=== PATIENT | female | born 1975 | race Caucasian/White ===

== ENCOUNTER 2016-05-31 17:41 | Emergency (ER) | payer MEDICARE ==
[~2016-05-31] VITALS: Ht 165.1 cm; Wt 111.1 kg
[2016-05-31 18:00] VITALS: BP 144/98; PULSE 90; RESP 16; TEMP 97.4; O2SAT 99
--- NOTE | 2016-05-31 18:15 | NUR ---
Pt to bed 8
--- NOTE | 2016-05-31 18:33 | NUR ---
PT c/o pain inner right nare from a cut a few days ago. No redness noted. No drainage noted.
--- NOTE | 2016-05-31 18:51 | NUR ---
Dr. Sousa at bedside for evaluation
--- NOTE | 2016-05-31 18:56 | NUR ---
Bacitracin applied to right inner nare
[2016-05-31 19:00] VITALS: BP 144/98; PULSE 90; RESP 16; TEMP 97.4; O2SAT 99
[2016-05-31] MEDS ORDERED: BACITRACIN 1 GM OINT TP ONE (19:00)
--- NOTE | 2016-05-31 19:00 | NUR ---
Patient given written and verbal discharge instructions and verbalizes understanding. ER MD discussed with patient the results and treatment provided. Patient in stable condition. ID arm band removed. Rx given. Patient educated on pain management and to follow up with PMD. Pain Scale 0/10. Opportunity for questions provided and answered.
== END 2016-05-31 19:00 | disposition home or self-care (01) ==
LOC: SED 17:41
DX: S00.31XD Abrasion of nose, subsequent encounter (principal); W45.8XXD Other foreign body or object entering through skin, subsequent encounter
CPT/HCPCS: 99281; 99283

== ENCOUNTER 2019-10-11 15:35 | Emergency (ER) | payer BC, MEDICARE ==
[~2019-10-11] VITALS: Ht 167.6 cm; Wt 66.7 kg
[2019-10-11 15:40] VITALS: BP_SYST 146
[2019-10-12] MEDS ORDERED: NACL 0.9% 1,000 ML IV ONE (02:00)
[2019-10-12 02:34] LABS: BILIRUBIN,URINE NEGATIVE (NEGATIVE); BLOOD, URINE 2+ (NEGATIVE); CLARITY/URINE SL CLOUDY (CLEAR); COLOR,URINE YELLOW (YELLOW); GLUCOSE,URINE NEGATIVE (NEGATIVE); KETONES,URINE 1+ (NEGATIVE); LEUKOCYTE ESTERASE ,URINE TRACE (NEGATIVE); NITRITE, URINE NEGATIVE (NEGATIVE); PH,URINE 5.5 (5.0-8.0); PROTEIN URINE NEGATIVE (NEGATIVE); UROBILINOGEN,URINE 0.2 (0.2-1.0)
[2019-10-12 02:35] LABS: BASOPHILS % (AUTO) 0.5 % (0.0-2.0); EOSINOPHILS # (AUTO) 0.1 K/uL (0.0-0.4); EOSINOPHILS % (AUTO) 1.5 % (0.0-4.0); HEMATOCRIT 41.5 % (36-48); LYMPHOCYTES # (AUTO) 2.3 K/uL (1.0-5.5); LYMPHOCYTES % (AUTO) 27.3 % (20.5-51.5); MEAN CORPUSCULAR HEMOGLOBIN 31 pg (27-31); MEAN CORPUSCULAR HGB CONC 34 % (32-36); MEAN CORPUSCULAR VOLUME 92 fL (79.0-98.0); MONOCYTES # (AUTO) 0.5 K/uL (0.0-1.0); MONOCYTES % (AUTO) 5.6 % (1.7-9.3); NEUTROPHILS # (AUTO) 5.5 K/uL (1.8-7.7); NEUTROPHILS % (AUTO) 65.1 % (40.0-70.0); PLATELET COUNT (AUTO) 189 K/uL (130-430); RED CELL DISTRIBUTION WIDTH 12.5 % (9.0-15.0); WHITE BLOOD COUNT (AUTO) 8.5 K/uL (4.8-10.8)
[2019-10-12] MEDS ORDERED: cefTRIAXone 1 GM in D5W 50 ML IV ONE (02:45)
[2019-10-12 02:48] LABS: BARBITURATE, URINE NEGATIVE (NEG <=200); CALCIUM 8.9 mg/dL (8.4-11.0); CREATININE 0.67 mg/dL (0.55-1.30); METHAMPHETAMINES SCREEN,URINE NEGATIVE (NEG <=500); POTASSIUM 3.2 mmol/L (3.5-5.1); URINE AMPHETAMINE NEGATIVE (NEG <=500)
[2019-10-12 02:49] LABS: BENZODIAZEPINE, URINE NEGATIVE (NEG <=150); CANNABINOID, URINE NEGATIVE (NEG <=50); COCAINE, URINE NEGATIVE (NEG <=150); OPIATE, URINE NEGATIVE (NEG <=100); PHENCYCLIDINE SCREEN,URINE NEGATIVE (NEG <=25); UR TRICYCLIC ANTIDEPRESSANTS NEGATIVE (NEG <=300); URINE METHADONE NEGATIVE (NEG <=200); URINE OXYCODONE SCREEN NEGATIVE (NEG <=100); URINE PROPOXYPHENE SCREEN NEGATIVE (NEG <=300)
[2019-10-12 02:55] LABS: BACTERIA,URINE FEW /HPF (None Seen)
[2019-10-12 02:56] LABS: HYALINE CASTS, URINE 0-10 /LPF (None Seen)
[2019-10-12 03:09] LABS: TOTAL BILIRUBIN 0.6 mg/dL (0.0-1.0)
[2019-10-12] MEDS ORDERED: cefTRIAXone 1 GM VIAL ONE (03:15)
[2019-10-12 04:29] VITALS: BP_SYST 135
[2019-10-12] MEDS ORDERED: POTASSIUM CHLORIDE 20 MEQ TAB.PRT.SR PO ONE (04:30)
== END 2019-10-12 04:29 | disposition home or self-care (01) ==
LOC: SED 15:35
DX: E86.0 Dehydration (principal); E87.6 Hypokalemia; N39.0 Urinary tract infection, site not specified
CPT/HCPCS: 36415; 70450; 71045; 80053; 80307; 81000; 81025; 85025; 87086; 96361; 96365; 99285; J0696

== ENCOUNTER 2020-11-03 21:31 | Emergency (ER) | payer BC ==
[~2020-11-03] VITALS: Ht 165.1 cm; Wt 86.2 kg
[2020-11-03 21:45] VITALS: BP_SYST 143
--- NOTE | 2020-11-03 21:45 | NUR ---
PT TO REMAIN IN ER UNTIL ER BED BECOMES AVAILABLE.
--- NOTE | 2020-11-03 23:55 | NUR ---
Patient to ER bed 05 to gown for evaluation. Side rails up. Report given to ELIJAH Nagy
--- NOTE | 2020-11-04 00:22 | NUR ---
Patient AAox4 and ambulatory from home c/o right ear discomfort. per patient stated hears movement and possible scratching or possible bug in ear. denies any hearing loss. currently rating discomfort of 4/10 on the pain scale. no discharge from ear noted. vss
--- NOTE | 2020-11-04 00:36 | NUR ---
DR. SWIFT AT BEDSIDE FOR EVALUATION.
--- NOTE | 2020-11-04 01:06 | NUR ---
Right Ear Lavaged with 160 cc of normal saline and hydrogen peroxide. Patient tolerated well.
[2020-11-04] MEDS ORDERED: CORTEARS RIGHT EAR (01:14)
[2020-11-04 01:20] VITALS: BP_SYST 143
--- NOTE | 2020-11-04 01:23 | NUR ---
Patient given written and verbal discharge instructions and verbalizes understanding. DR. JENIFFER BRINK MD discussed with patient the results and treatment provided. Patient in stable condition. ID arm band removed. Rx of CORTISPORIN EAR DROPS given. Patient educated on pain management and to follow up with PMD. Pain Scale 0/10. Opportunity for questions provided and answered. Medication side effect fact sheet provided.
== END 2020-11-04 01:23 | disposition home or self-care (01) ==
LOC: SED 21:31
DX: T16.1XXA Foreign body in right ear, initial encounter (principal); X58.XXXA Exposure to other specified factors, initial encounter; Y93.89 Activity, other specified; Y92.89 Other specified places as the place of occurrence of the external cause; Y99.8 Other external cause status
CPT/HCPCS: 99284

== ENCOUNTER 2020-11-10 18:49 | Emergency (ER) | payer BC ==
[~2020-11-10] VITALS: Ht 165.1 cm; Wt 86.2 kg
[~2020-11-10 18:49] MED LIST: CORTEARS RIGHT EAR
[2020-11-10 19:06] VITALS: BP_SYST 136
[2020-11-10] MEDS ORDERED: AMOX500C2 PO (23:18)
[2020-11-10 23:28] VITALS: BP_SYST 125
== END 2020-11-10 23:28 | disposition home or self-care (01) ==
LOC: SED 18:49
DX: H66.91 Otitis media, unspecified, right ear (principal); Z79.899 Other long term (current) drug therapy
CPT/HCPCS: 99283

== ENCOUNTER 2021-07-10 21:48 | Emergency (ER) | payer BC ==
[~2021-07-10] VITALS: Ht 165.1 cm; Wt 98.9 kg
[~2021-07-10 21:48] MED LIST changes: +AMOX500C2 PO
[2021-07-10 22:13] VITALS: BP_SYST 134
[2021-07-10 22:35] VITALS: BP_SYST 134
== END 2021-07-10 22:35 | disposition home or self-care (01) ==
LOC: SED 21:48
DX: T16.1XXA Foreign body in right ear, initial encounter (principal); X58.XXXA Exposure to other specified factors, initial encounter; Y93.89 Activity, other specified; Y92.098 Other place in other non-institutional residence as the place of occurrence of the external cause; Y99.8 Other external cause status
CPT/HCPCS: 99282

== ENCOUNTER 2021-07-24 11:16 | Emergency (ER) | payer BC ==
[~2021-07-24] VITALS: Ht 165.1 cm; Wt 97.5 kg
[2021-07-24 11:25] VITALS: BP_SYST 132
--- NOTE | 2021-07-24 11:25 | NUR ---
Pt is to remain in the ER lobby until an ER bed becomes available.
--- NOTE | 2021-07-24 12:20 | NUR ---
ER Dr Salazar to bedside to examine patient
--- NOTE | 2021-07-24 12:26 | NUR ---
Pt came in from home reporting L ear discomfort x 3 days after leaving shampoo in ear then rinsing it several times. Alert and oriented. Non diabetic. Awaiting further dispo.
[2021-07-24] MEDS ORDERED: AMOX500C2 PO (12:33)
[2021-07-24] MEDS ORDERED: IBUP-1969 PO (12:33)
[2021-07-24] MEDS ORDERED: CORTEARS RIGHT EAR (12:33)
--- NOTE | 2021-07-24 13:02 | NUR ---
Patient given written and verbal discharge instructions and verbalizes understanding. ER Dr Salazar discussed with patient the results and treatment provided. Patient in stable condition. ID arm band removed. Rx of Amoxicillin, Cortisporin and Ibuprofen given. Patient educated on pain management and to follow up with PMD. Pain scale 2/10. Opportunity for questions provided and answered. Medication side effect fact sheet provided.
[2021-07-24 13:03] VITALS: BP_SYST 132
== END 2021-07-24 13:03 | disposition home or self-care (01) ==
LOC: SED 11:16
DX: H60.92 Unspecified otitis externa, left ear (principal)
CPT/HCPCS: 99283

== ENCOUNTER 2021-07-29 22:55 | Emergency (ER) | payer BC ==
[~2021-07-29] VITALS: Ht 165.1 cm; Wt 98.9 kg
[~2021-07-29 22:55] MED LIST changes: +IBUP-1969 PO
[2021-07-29 23:12] VITALS: BP_SYST 141
--- NOTE | 2021-07-29 23:16 | NUR ---
Patient triaged and placed in waiting room. VSS and patient appears in no acute distress at this time. Accompanied by self, awaiting available bed, and MD notified of need for MSE.
[2021-07-29] MEDS ORDERED: DIPH-TET-PERTUS Vaccine 0.5 ML VIAL (ADACEL) I.M. ONE (23:30)
--- NOTE | 2021-07-30 00:01 | NUR ---
PATIENT COMPLAINING OF SCRATCH TO RIGHT UPPER ARM. PATIENT REPORTS THAT SHE SCRATCHED IT WITH A GREG SCREW. PATIENT WOULD LIKE TO BE UPDATED ON TDAP. DENIES ANY PAIN AT THIS TIME.
--- NOTE | 2021-07-30 00:05 | NUR ---
ER in triage examining patient.
[2021-07-30 00:23] VITALS: BP_SYST 132
--- NOTE | 2021-07-30 00:23 | NUR ---
Patient given written and verbal discharge instructions and verbalizes understanding. ER MD discussed with patient the results and treatment provided. Patient in stable condition. ID arm band removed. NO RX Patient educated on pain management and to follow up with PMD. Pain Scale 0/10 Opportunity for questions provided and answered.
== END 2021-07-30 00:23 | disposition home or self-care (01) ==
LOC: SED 22:55
DX: S40.211A Abrasion of right shoulder, initial encounter (principal); Z79.899 Other long term (current) drug therapy; W22.8XXA Striking against or struck by other objects, initial encounter; Y93.89 Activity, other specified; Y92.89 Other specified places as the place of occurrence of the external cause; Y99.8 Other external cause status
CPT/HCPCS: 90715; 99283

== ENCOUNTER 2021-08-07 14:33 | Emergency (ER) | payer BC ==
[~2021-08-07] VITALS: Ht 165.1 cm; Wt 95.3 kg
--- NOTE | 2021-08-07 14:33 | NUR ---
Pt triaged and placed in ER lobby awaiting bed availability.
[2021-08-07 14:37] VITALS: BP_SYST 124
[2021-08-07 17:09] VITALS: BP_SYST 124
--- NOTE | 2021-08-07 17:10 | NUR ---
Patient given written and verbal discharge instructions and verbalizes understanding. ER MD discussed with patient the results and treatment provided. Patient in stable condition. ID arm band removed. . Rx of Chothrimazole eardrops given. Patient educated on pain management and to follow up with PMD. Pain Scale 2/10. Opportunity for questions provided and answered. Medication side effect fact sheet provided.
== END 2021-08-07 17:09 | disposition home or self-care (01) ==
LOC: SED 14:33
DX: H60.592 Other noninfective acute otitis externa, left ear (principal)
CPT/HCPCS: 82962; 99282

== ENCOUNTER 2021-08-11 10:09 | Emergency (ER) | payer BC ==
[~2021-08-11] VITALS: Ht 165.1 cm; Wt 95.3 kg
[2021-08-11 10:15] VITALS: BP_SYST 138
--- NOTE | 2021-08-11 10:15 | NUR ---
Patient to ER bed 3 to gown for evaluation. Side rails up. Report given to Иван NAVA.
--- NOTE | 2021-08-11 10:20 | NUR ---
RECEIVE PATIENT IN BED #3 FOR CC OF BILATERAL EAR PAIN AND NEEDING FURTHER TREATMENT. PT IS STABLE, NAD, VSS, AAOx3, AWAITING TO BE SEEN BY ED MD FOR PLAN OF CARE WITH DISPOSITION.
--- NOTE | 2021-08-11 10:21 | NUR ---
ER at bedside examining patient.
[2021-08-11] MEDS ORDERED: CIPR7.5D OT (10:24)
[2021-08-11] MEDS ORDERED: NAPR-688 PO (10:24)
[2021-08-11 10:30] VITALS: BP_SYST 138
--- NOTE | 2021-08-11 10:35 | NUR ---
Patient given written and verbal discharge instructions and verbalizes understanding. ER MD discussed with patient the results and treatment provided. Patient in stable condition. Rx of given. Patient educated on pain management and to follow up with PMD. Opportunity for questions provided and answered. Medication side effect fact sheet provided.
== END 2021-08-11 10:35 | disposition home or self-care (01) ==
LOC: SED 10:09
DX: H60.92 Unspecified otitis externa, left ear (principal)
CPT/HCPCS: 99283

== ENCOUNTER 2021-10-29 20:17 | Emergency (ER) | payer BC ==
[~2021-10-29] VITALS: Ht 165.1 cm; Wt 95.3 kg
[~2021-10-29 20:17] MED LIST changes: +CIPR7.5D OT; +NAPR-688 PO
--- NOTE | 2021-10-29 22:46 | NUR ---
Pt called to be seen by MD. No answer and pt not seen in WR. Dr Verduzco aware.
[2021-10-30] MEDS ORDERED: CORTEARS EACH EAR (14:47)
[2021-10-30] MEDS ORDERED: TRAM50TA2 PO (14:47)
[2021-10-30] MEDS ORDERED: IBUP-1969 PO (14:47)
== END 2021-10-29 22:46 | disposition left against medical advice (07) ==
LOC: SED 20:17
DX: H92.02 Otalgia, left ear (principal); Z53.21 Procedure and treatment not carried out due to patient leaving prior to being seen by health care provider

== ENCOUNTER 2021-10-31 09:55 | Emergency (ER) | payer BC ==
[~2021-10-31] VITALS: Ht 165.1 cm; Wt 90.7 kg
[~2021-10-31 09:55] MED LIST changes: +CORTEARS EACH EAR; +TRAM50TA2 PO
[2021-10-31] MEDS ORDERED: TRAM50TA PO (11:08)
[2021-10-31 11:43] VITALS: BP_SYST 135
== END 2021-10-31 11:43 | disposition home or self-care (01) ==
LOC: SED 09:55
DX: H72.92 Unspecified perforation of tympanic membrane, left ear (principal); Z79.899 Other long term (current) drug therapy
CPT/HCPCS: 99283

== ENCOUNTER 2021-11-01 08:02 | Emergency (ER) | payer BC ==
[~2021-11-01] VITALS: Ht 165.1 cm; Wt 95.3 kg
[2021-11-01 08:02] VITALS: BP_SYST 152
[~2021-11-01 08:02] MED LIST changes: +TRAM50TA PO
[2021-11-01 08:42] VITALS: BP_SYST 152
== END 2021-11-01 08:46 | disposition home or self-care (01) ==
LOC: SED 08:02
DX: H92.01 Otalgia, right ear (principal); R03.0 Elevated blood-pressure reading, without diagnosis of hypertension; Z79.899 Other long term (current) drug therapy
CPT/HCPCS: 99281

== ENCOUNTER 2021-11-11 14:14 | Emergency (ER) | payer BC ==
[~2021-11-11] VITALS: Ht 165.1 cm; Wt 95.3 kg
[2021-11-11 14:15] VITALS: BP_SYST 135
--- NOTE | 2021-11-11 14:20 | NUR ---
Patient triaged and placed in waiting room. VSS and patient appears in no acute distress at this time. Accompanied by SELF, awaiting available bed, and MD notified of need for MSE.
--- NOTE | 2021-11-11 14:35 | NUR ---
PT STATES RIGHT EAR PAIN SINCE LAST NIGHT WITH BURNING IN THE CANAL. STATES POSSIBLE CHEMICALS IN EAR. PT HAS BEEN HERE MANY TIMES FOR EAR ISSUES.
--- NOTE | 2021-11-11 15:10 | NUR ---
DR ANDERSON OUT TO TRIAGE ROOM TO EVALUATE PT.
--- NOTE | 2021-11-11 16:03 | NUR ---
Patient given written and verbal discharge instructions and verbalizes understanding. ER MD discussed with patient the results and treatment provided. Patient in stable condition. ID arm band removed Rx of NONE given. Patient educated on pain management and to follow up with PMD. Pain Scale 0/10. Opportunity for questions provided and answered. Medication side effect fact sheet provided.
== END 2021-11-11 16:03 | disposition home or self-care (01) ==
LOC: SED 14:14
DX: H92.01 Otalgia, right ear (principal)
CPT/HCPCS: 99281

== ENCOUNTER 2021-12-16 13:14 | Emergency (ER) | payer BC ==
[~2021-12-16] VITALS: Ht 165.1 cm; Wt 95.3 kg
--- NOTE | 2021-12-16 13:30 | NUR ---
Patient triaged and placed in waiting room. VSS and patient appears in no acute distress at this time. Accompanied by FATHER, awaiting available bed, and MD notified of need for MSE.
[2021-12-16 13:40] VITALS: BP_SYST 121
[2021-12-16] MEDS ORDERED: IBUP-1969 PO (14:37)
[2021-12-16] MEDS ORDERED: CORTEARS LEFT EAR (14:37)
--- NOTE | 2021-12-16 14:40 | NUR ---
ER DR. LUCAS EXAMINING PT IN TRIAGE
--- NOTE | 2021-12-16 15:42 | NUR ---
Patient given written and verbal discharge instructions and verbalizes understanding. ER MD discussed with patient the results and treatment provided. Patient in stable condition. ID arm band removed. Rx of CORTISPORIN EAR DROPS given. Patient educated on pain management and to follow up with PMD. Pain Scale 0/10. Opportunity for questions provided and answered. Medication side effect fact sheet provided.
== END 2021-12-16 15:39 | disposition home or self-care (01) ==
LOC: SED 13:14
DX: H60.92 Unspecified otitis externa, left ear (principal); H92.02 Otalgia, left ear; Z79.899 Other long term (current) drug therapy
CPT/HCPCS: 99283

== ENCOUNTER 2022-01-14 11:54 | Emergency (ER) | payer BC ==
[~2022-01-14] VITALS: Ht 165.1 cm; Wt 95.3 kg
[~2022-01-14 11:54] MED LIST changes: +CORTEARS LEFT EAR
[2022-01-14] MEDS ORDERED: IBUP-1969 PO (12:25)
[2022-01-14] MEDS ORDERED: CARB15DR93 RIGHT EAR (12:28)
[2022-01-14 13:01] VITALS: BP_SYST 148
[2022-01-15] MEDS ORDERED: FLUT16SP16 NS (17:09)
== END 2022-01-14 13:01 | disposition home or self-care (01) ==
LOC: SED 11:54
DX: H92.01 Otalgia, right ear (principal); Z79.899 Other long term (current) drug therapy
CPT/HCPCS: 99283

== ENCOUNTER 2022-01-15 16:55 | Emergency (ER) | payer BC ==
[~2022-01-15] VITALS: Ht 167.6 cm; Wt 81.6 kg
[2022-01-15 16:55] VITALS: BP_SYST 148
[~2022-01-15 16:55] MED LIST changes: +CARB15DR93 RIGHT EAR
--- NOTE | 2022-01-15 16:55 | NUR ---
BROUGHT IN BY [facility], PLACED IN HALLWAY AND TRIAGED. WILL ASSUME CARE
--- NOTE | 2022-01-15 17:04 | NUR ---
PT CALLED 911 FOR BILATERAL EAR PAIN STATING THAT SHE PUT THE WRONG EAR DROPS IN THE WRONG EAR AND NOW WITH 9/10 ILANA EAR PAIN. PT IS VERY FAMILIAR TO STAFF FOR EAR ISSUES. PT STATES SHE WAS HERE YESTERDAY AND GOT EAR DROPS.
--- NOTE | 2022-01-15 17:08 | NUR ---
DR ALANIS EVALUATING PT IN [facility]
[2022-01-15] MEDS ORDERED: FLUT16SP16 NS (17:09)
--- NOTE | 2022-01-15 17:11 | NUR ---
Patient given written and verbal discharge instructions and verbalizes understanding. ER MD discussed with patient the results and treatment provided. Patient in stable condition. ID arm band removed. Rx of FLONASE NASAL SPRAY given. Patient educated on pain management and to follow up with PMD. Pain Scale 2/10. Opportunity for questions provided and answered. Medication side effect fact sheet provided.
== END 2022-01-15 17:10 | disposition home or self-care (01) ==
LOC: SED 16:55
DX: H69.93 Unspecified Eustachian tube disorder, bilateral (principal); Z79.899 Other long term (current) drug therapy
CPT/HCPCS: 99283

== ENCOUNTER 2022-01-29 16:39 | Emergency (ER) | payer BC ==
[~2022-01-29] VITALS: Ht 165.1 cm; Wt 90.7 kg
[~2022-01-29 16:39] MED LIST changes: +FLUT16SP16 NS
[2022-01-29 16:40] VITALS: BP_SYST 144
--- NOTE | 2022-01-29 16:45 | NUR ---
ER DR. LUCAS EXAMINING PT ON CONG
[2022-01-29] MEDS ORDERED: LIDOCAINE 1%, 20 ML MDV 20 ML ONE (16:49)
--- NOTE | 2022-01-29 17:00 | NUR ---
PT SENT TO [facility]
[2022-01-29] MEDS ORDERED: IBUP-1969 PO (17:40)
[2022-01-29 18:00] VITALS: BP_SYST 139
--- NOTE | 2022-01-29 18:02 | NUR ---
Patient given written and verbal discharge instructions and verbalizes understanding. ER MD discussed with patient the results and treatment provided. Patient in stable condition. ID arm band removed. Rx of IBUPROFEN given. Patient educated on pain management and to follow up with PMD. Pain Scale 0/10. Opportunity for questions provided and answered. Medication side effect fact sheet provided.
== END 2022-01-29 18:00 | disposition home or self-care (01) ==
LOC: SED 16:39
DX: H60.592 Other noninfective acute otitis externa, left ear (principal); H92.02 Otalgia, left ear; Z79.899 Other long term (current) drug therapy
CPT/HCPCS: 99282; J2001

== ENCOUNTER 2022-01-30 02:51 | Emergency (ER) | payer BC ==
[~2022-01-30] VITALS: Ht 165.1 cm; Wt 90.7 kg
[2022-01-30 02:54] VITALS: BP_SYST 132
--- NOTE | 2022-01-30 03:00 | NUR ---
PT HERE C/O FOREIGN BODY GOT INTO HER RT EAR. PER PT A BUG WENT TO HER RT EAR ON HER WAY HOME. PT DENIES PAIN PMH;HYPERLIPIDEMIA PT AAOX4, NO S IN ANY DISTRESS. AMBULATED WITH STEDAY TO RM2
--- NOTE | 2022-01-30 03:07 | NUR ---
ER MD Rasheed at bedside.
--- NOTE | 2022-01-30 03:10 | NUR ---
patient A/Ox4, VSS, resp even and unlabored. Patient resting in bed with side rails raised Nad noted at this time.
[2022-01-30 03:24] VITALS: BP_SYST 132
--- NOTE | 2022-01-30 03:24 | NUR ---
Patient given written and verbal discharge instructions and verbalizes understanding. ER MD discussed with patient the results and treatment provided. Patient in stable condition. ID arm band removed. Patient educated on pain management and to follow up with PMD. Pain Scale 0/10. Opportunity for questions provided and answered. PATIENT IN STABLE CONDITION UPON DISCHARGE
== END 2022-01-30 03:24 | disposition home or self-care (01) ==
LOC: SED 02:51
DX: H92.01 Otalgia, right ear (principal); R11.10 Vomiting, unspecified; Z79.899 Other long term (current) drug therapy
CPT/HCPCS: 99281

== ENCOUNTER 2022-02-12 14:14 | Emergency (ER) | payer BC ==
[~2022-02-12] VITALS: Ht 165.1 cm; Wt 90.7 kg
[2022-02-12 14:50] VITALS: BP_SYST 128
--- NOTE | 2022-02-12 14:57 | NUR ---
BIBS WITH C/C OF TWO DAYS AGO DOING LAUNDRY AT THE [facility] AND NOTED WHEN RETURNING HOME SHE NOTED THE DORSAL SURFACE OF BILATERAL HANDS REDDENED. NOTED SLIGHTLY PINK/RED DORSAL SURFACE OF BILATERAL HANDS. PT REPORTS BURNING 9/10 PAIN FOR LAST TWO DAYS. PT WITH BIPOLAR HX WITH FLAT AFFECT. DENIES USING ANY OTHER CHEMICALS ON HANDS. PLACED BACK IN WAITING ROOM. PENDING DR. HIGGINS TO SEE.
--- NOTE | 2022-02-12 15:30 | NUR ---
Dr Maria evaluating patient at bedside
--- NOTE | 2022-02-12 18:10 | NUR ---
Note [email or web address] in EDM - 02/12/22 at 1837 by [email or web address] Patient given written and verbal discharge instructions and verbalizes understanding. ER discussed with patient the results and treatment provided. Patient in stable condition. ID arm band removed. No Rx given. Patient educated on pain management and to follow up with PMD. Pain Scale 2/10. Opportunity for questions provided and answered. Medication side effect fact sheet provided.
--- NOTE | 2022-02-12 18:10 | NUR ---
Patient given verbal discharge instructions and verbalizes understanding.pt left without written instructions ,ER MD discussed with patient the results and treatment provided. Patient in stable condition. ID arm band removed. No Rx given. Patient educated on pain management and to follow up with PMD. Pain Scale 2/10. Opportunity for questions provided and answered. Medication side effect fact sheet provided.
[2022-02-12 18:34] VITALS: BP_SYST 128
== END 2022-02-12 18:34 | disposition home or self-care (01) ==
LOC: SED 14:14
DX: L20.9 Atopic dermatitis, unspecified (principal); R21 Rash and other nonspecific skin eruption; Z79.899 Other long term (current) drug therapy
CPT/HCPCS: 99281

== ENCOUNTER 2022-02-23 09:47 | Emergency (ER) | payer BC ==
[~2022-02-23] VITALS: Ht 167.6 cm; Wt 88.5 kg
[2022-02-23 09:59] VITALS: BP_SYST 116
[2022-02-23] MEDS ORDERED: PHEN-683 PO (11:33)
[2022-02-23] MEDS ORDERED: IBUP-1969 PO (11:33)
== END 2022-02-23 11:44 | disposition home or self-care (01) ==
LOC: SED 09:47
DX: U07.1 COVID-19 (principal); R05.9 Cough, unspecified; R09.81 Nasal congestion; J02.9 Acute pharyngitis, unspecified; Z79.899 Other long term (current) drug therapy
CPT/HCPCS: 36415; 99283

== ENCOUNTER 2022-04-03 22:56 | Emergency (ER) | payer BC ==
[~2022-04-03] VITALS: Ht 165.1 cm; Wt 90.7 kg
[~2022-04-03 22:56] MED LIST changes: +PHEN-683 PO
--- NOTE | 2022-04-03 23:00 | NUR ---
Patient triaged and kept on gurney. VSS and patient appears in no acute distress at this time. Awaiting available bed, and MD Maria notified of need for MSE.
[2022-04-03 23:01] VITALS: BP_SYST 128
--- NOTE | 2022-04-03 23:15 | NUR ---
MD Maria examining pt.
--- NOTE | 2022-04-03 23:30 | NUR ---
Patient given written and verbal discharge instructions and verbalizes understanding. ER MD Maria discussed with patient the results and treatment provided. Patient in stable condition. ID arm band removed. Opportunity for questions provided and answered.
[2022-04-03 23:35] VITALS: BP_SYST 123
== END 2022-04-03 23:30 | disposition home or self-care (01) ==
LOC: SED 22:56
DX: T16.1XXA Foreign body in right ear, initial encounter (principal); Z79.899 Other long term (current) drug therapy; W45.8XXA Other foreign body or object entering through skin, initial encounter; Y93.89 Activity, other specified; Y92.89 Other specified places as the place of occurrence of the external cause; Y99.8 Other external cause status
CPT/HCPCS: 99284

== ENCOUNTER 2022-05-13 16:20 | Emergency (ER) | payer BC, MEDICAID ==
[~2022-05-13] VITALS: Ht 165.1 cm; Wt 90.7 kg
[2022-05-13 16:32] VITALS: BP_SYST 145
[2022-05-13] MEDS ORDERED: BACI15OI13 TP (17:12)
[2022-05-13 17:29] VITALS: BP_SYST 134
== END 2022-05-13 17:27 | disposition home or self-care (01) ==
LOC: SED 16:20
DX: S00.412A Abrasion of left ear, initial encounter (principal); Z79.899 Other long term (current) drug therapy; X58.XXXA Exposure to other specified factors, initial encounter; Y93.89 Activity, other specified; Y92.89 Other specified places as the place of occurrence of the external cause; Y99.8 Other external cause status
CPT/HCPCS: 99282

== ENCOUNTER 2022-06-01 19:00 | Emergency (ER) | payer MEDICAID ==
[~2022-06-01] VITALS: Ht 165.1 cm; Wt 90.7 kg
[~2022-06-01 19:00] MED LIST changes: +BACI15OI13 TP
[2022-06-01 19:24] VITALS: BP_SYST 133
--- NOTE | 2022-06-01 19:35 | NUR ---
PT FROM HOME WITH C/O OF RIGHT EAR PAIN ACCOMPANIED BY ITCHINESS. PT REPORTS HAVING EAR CHECKED YESTERDAY AT ER. VSS. SHELLEY REQUESTE FOR MSE.
--- NOTE | 2022-06-01 19:36 | NUR ---
Patient triaged and placed in waiting room. VSS and patient appears in no acute distress at this time. Accompanied by SELF, awaiting available bed, and MD notified of need for MSE.
--- NOTE | 2022-06-01 21:40 | NUR ---
Patient to ER bed HB1 to gown for evaluation. Side rails up.
--- NOTE | 2022-06-01 21:45 | NUR ---
DR. MAGAÑA AT BEDSIDE WITH PATIENT FOR MSE.
[2022-06-01] MEDS ORDERED: DIPH25CA83 PO (21:50)
[2022-06-01 21:55] VITALS: BP_SYST 133
--- NOTE | 2022-06-01 21:55 | NUR ---
Patient given written and verbal discharge instructions and verbalizes understanding. ER DR. MAGAÑA discussed with patient the results and treatment provided. Patient in stable condition. ID arm band removed. Rx of BENADRYL given. Patient educated on pain management and to follow up with PMD. Pain Scale 0. Opportunity for questions provided and answered. Medication side effect fact sheet provided.
== END 2022-06-01 21:55 | disposition home or self-care (01) ==
LOC: SED 19:00
DX: H92.01 Otalgia, right ear (principal); Z79.899 Other long term (current) drug therapy
CPT/HCPCS: 99282

== ENCOUNTER 2022-09-22 13:54 | Emergency (ER) | payer MEDICAID ==
[~2022-09-22] VITALS: Ht 165.1 cm; Wt 90.7 kg
[~2022-09-22 13:54] MED LIST changes: +DIPH25CA83 PO
[2022-09-22 14:23] VITALS: BP_SYST 126
[2022-09-22] MEDS ORDERED: TETRACAINE HCL/PF 0.5% OPHTHALMIC DROPS 4 ML OP ONE (14:30)
[2022-09-22] MEDS ORDERED: NAPH15DR52 EACH EYE (14:57)
[2022-09-22] MEDS ORDERED: GENT5DRO7 EACH EYE (14:57)
[2022-09-22 15:21] VITALS: BP_SYST 133
== END 2022-09-22 15:50 | disposition home or self-care (01) ==
LOC: SED 13:54
DX: H10.212 Acute toxic conjunctivitis, left eye (principal); H92.02 Otalgia, left ear; Z79.899 Other long term (current) drug therapy
CPT/HCPCS: 99283

== ENCOUNTER 2022-10-02 18:28 | Emergency (ER) | payer MEDICAID ==
[~2022-10-02] VITALS: Ht 165.1 cm; Wt 90.7 kg
[~2022-10-02 18:28] MED LIST changes: +GENT5DRO7 EACH EYE; +NAPH15DR52 EACH EYE
[2022-10-02 18:50] VITALS: BP_SYST 138; PULSE 75; RESP 18; TEMP 98.3; O2SAT 98
--- NOTE | 2022-10-02 20:40 | NUR ---
pt went to bed 4
--- NOTE | 2022-10-02 20:50 | NUR ---
pt is here for excess of earwaxes on both of the ears and some pain 07/09. Pt is also complaining edema on bilateral leg.
--- NOTE | 2022-10-02 20:52 | NUR ---
at the bedside evaluating the patient.
[2022-10-02] MEDS ORDERED: KETOROLAC TROMETHAMINE 30 MG VIAL IM ONE (21:00)
--- NOTE | 2022-10-02 21:30 | NUR ---
PT IS GETTING THE IRRIGATION. PT TOLEARTED WELL
[2022-10-02 21:55] VITALS: BP_SYST 138; PULSE 75; RESP 18; TEMP 98.3; O2SAT 98
--- NOTE | 2022-10-02 22:15 | NUR ---
Patient given written and verbal discharge instructions and verbalizes understanding. ER MD discussed with patient the results and treatment provided. Patient in stable condition. ID arm band removed. IV catheter removed intact and dressing applied, no active bleeding. Patient educated on pain management and to follow up with PMD. Pain Scale 0/10 Opportunity for questions provided and answered. Medication side effect fact sheet provided.
== END 2022-10-02 21:55 | disposition home or self-care (01) ==
LOC: SED 18:28
DX: H61.22 Impacted cerumen, left ear (principal); H92.03 Otalgia, bilateral; R51.9 Headache, unspecified; Z79.899 Other long term (current) drug therapy
CPT/HCPCS: 99283; 69209; 96372; J1885

== ENCOUNTER 2022-11-07 19:26 | Emergency (ER) | payer MEDICAID ==
[~2022-11-07] VITALS: Ht 165.1 cm; Wt 90.7 kg
[2022-11-07 19:32] VITALS: BP_SYST 138; PULSE 78; RESP 18; TEMP 97.5; O2SAT 98
[2022-11-07] MEDS ORDERED: NEOM10SO7 EACH EAR (21:34)
[2022-11-07] MEDS ORDERED: IBUP-1969 PO (21:34)
[2022-11-07 21:40] VITALS: BP_SYST 138; PULSE 78; RESP 18; TEMP 97.5; O2SAT 98
== END 2022-11-07 21:40 | disposition home or self-care (01) ==
LOC: SED 19:26
DX: H60.92 Unspecified otitis externa, left ear (principal); Z79.899 Other long term (current) drug therapy
CPT/HCPCS: 99283

== ENCOUNTER 2023-01-08 14:24 | Emergency (ER) | payer MEDICAID ==
[~2023-01-08] VITALS: Ht 165.1 cm; Wt 93.0 kg
[~2023-01-08 14:24] MED LIST changes: +NEOM10SO7 EACH EAR
[2023-01-08 14:35] VITALS: BP_SYST 144; PULSE 83; RESP 20; TEMP 98.6; O2SAT 98
[2023-01-08 16:56] VITALS: BP_SYST 144; PULSE 83; RESP 20; TEMP 98.6; O2SAT 98
== END 2023-01-08 16:53 | disposition home or self-care (01) ==
LOC: SED 14:24
DX: H92.02 Otalgia, left ear (principal); Z79.899 Other long term (current) drug therapy
CPT/HCPCS: 99283

== ENCOUNTER 2023-05-03 11:25 | Emergency (ER) | payer MEDICAID ==
[~2023-05-03] VITALS: Ht 165.1 cm; Wt 97.5 kg
[2023-05-03 11:36] VITALS: BP_SYST 151; PULSE 73; RESP 18; TEMP 97.1; O2SAT 99
[2023-05-03 13:04] VITALS: BP_SYST 151; PULSE 73; RESP 18; TEMP 97.1; O2SAT 99
== END 2023-05-03 13:07 | disposition home or self-care (01) ==
LOC: SED 11:25
DX: H92.01 Otalgia, right ear (principal); Z79.899 Other long term (current) drug therapy
CPT/HCPCS: 99281

== ENCOUNTER 2023-06-26 14:43 | Emergency (ER) | payer MEDICAID ==
[~2023-06-26] VITALS: Ht 165.1 cm; Wt 99.8 kg
[2023-06-26 14:57] VITALS: BP_SYST 157; PULSE 79; RESP 16; TEMP 97.8; O2SAT 95
[2023-06-26 16:49] LABS: INFLUENZA TYPE A Negative (NEGATIVE); INFLUENZA TYPE B NEGATIVE (NEGATIVE)
[2023-06-26] MEDS ORDERED: PHEDM120 PO (16:53)
[2023-06-26] MEDS ORDERED: ZIT250 PO (16:53)
[2023-06-26 16:58] LABS: COVID19 ANTIGEN SOFIA FIA NEGATIVE (NEGATIVE)
[2023-06-26 17:04] VITALS: BP_SYST 144; PULSE 80; RESP 18; TEMP 98.1; O2SAT 97
== END 2023-06-26 17:03 | disposition home or self-care (01) ==
LOC: SED 14:43
DX: J20.9 Acute bronchitis, unspecified (principal); R05.9 Cough, unspecified; R09.89 Other specified symptoms and signs involving the circulatory and respiratory systems; J02.9 Acute pharyngitis, unspecified; Z79.899 Other long term (current) drug therapy; Z20.822 Contact with and (suspected) exposure to COVID-19
CPT/HCPCS: 36415; 71045; 99284

== ENCOUNTER 2023-07-05 18:45 | Emergency (ER) | payer MEDICAID ==
[~2023-07-05] VITALS: Ht 165.1 cm; Wt 99.8 kg
[~2023-07-05 18:45] MED LIST changes: +PHEDM120 PO; +ZIT250 PO
[2023-07-05 19:27] LABS: BASOPHILS % (AUTO) 0.3 % (0.0-2.0); EOSINOPHILS # (AUTO) 0.3 K/uL (0.0-0.4); EOSINOPHILS % (AUTO) 3.2 % (0.0-4.0); HEMATOCRIT 30.5 % (36-48); HEMOGLOBIN 10.6 g/dL (12.0-16.0); LYMPHOCYTES % (AUTO) 22.3 % (20.5-51.5); MEAN CORPUSCULAR HEMOGLOBIN 29 pg (27-31); MEAN CORPUSCULAR HGB CONC 35 % (32-36); MEAN CORPUSCULAR VOLUME 83 fL (79.0-98.0); MONOCYTES # (AUTO) 0.4 K/uL (0.0-1.0); MONOCYTES % (AUTO) 4.9 % (1.7-9.3); NEUTROPHILS # (AUTO) 6.3 K/uL (1.8-7.7); NEUTROPHILS % (AUTO) 69.3 % (40.0-70.0); PLATELET COUNT (AUTO) 217 K/uL (130-430); RED BLOOD CELL COUNT(AUTO) 3.68 MIL/uL (4.2-6.2); RED CELL DISTRIBUTION WIDTH 15.3 % (9.0-15.0); WHITE BLOOD COUNT (AUTO) 9.1 K/uL (4.8-10.8)
[2023-07-05 19:38] LABS: CALCIUM 7.8 mg/dL (8.4-11.0); CREATININE 1.31 mg/dL (0.55-1.30); POTASSIUM 3.5 mmol/L (3.5-5.1)
[2023-07-05 19:43] LABS: BILIRUBIN,DIRECT 0.1 mg/dL (0.0-0.3); TOTAL BILIRUBIN 0.2 mg/dL (0.0-1.0); TOTAL PROTEIN, SERUM 6.9 g/dL (6.4-8.3)
[2023-07-05 21:21] VITALS: BP_SYST 158; PULSE 66; RESP 18; TEMP 97.9; O2SAT 99
[2023-07-05 22:21] LABS: BILIRUBIN,URINE NEGATIVE (NEGATIVE); BLOOD, URINE 3+ (NEGATIVE); CLARITY/URINE SL CLOUDY (CLEAR); COLOR,URINE RED (YELLOW); GLUCOSE,URINE NEGATIVE (NEGATIVE); KETONES,URINE NEGATIVE (NEGATIVE); NITRITE, URINE NEGATIVE (NEGATIVE); PH,URINE 7.5 (5.0-8.0); PROTEIN URINE TRACE (NEGATIVE); UROBILINOGEN,URINE 0.2 (0.2-1.0)
[2023-07-05 22:28] LABS: RBC,URINE >100 /HPF (0-3)
[2023-07-05 22:29] LABS: BACTERIA,URINE FEW /HPF (None Seen); LEUKOCYTE ESTERASE ,URINE NEGATIVE (NEGATIVE); MUCUS,URINE None Seen /LPF (None Seen); WBC,URINE NONE SEEN /HPF (0-3)
[2023-07-05] MEDS ORDERED: MEDR10TA72 PO (23:53)
[2023-07-06 00:10] VITALS: BP_SYST 168; PULSE 64; RESP 19; TEMP 97.2; O2SAT 97
== END 2023-07-06 00:10 | disposition home or self-care (01) ==
LOC: SED 18:45
DX: N93.8 Other specified abnormal uterine and vaginal bleeding (principal); R42 Dizziness and giddiness; R00.2 Palpitations; Z79.899 Other long term (current) drug therapy
CPT/HCPCS: 36415; 76856; 80048; 80076; 81000; 81001; 81015; 85025; 86886; 86900; 86901; 99284